=== PATIENT | male | born 1970 | race Caucasian/White ===

== ENCOUNTER 2020-08-20 05:09 | Observation (INO) ==
--- NOTE | 2020-08-12 10:18 | Anesthesiology Consultation ---
Date of Service August 12, 2020 Assessment & Plan (1) Encounter for pre-operative examination: - COVID screening: Per assessment on 08/06: Travel screen- travels throughout [place] (works as a tractor trailer truck driver)- wears proper PPE/follows COVID precaution guidelines. No known COVID-19 positive contacts or current COVID-19 related symptoms. Surgeon arranging preop COVID testing (scheuled 08/13; surgeon's office). Awaiting results. - Check BSG AM DOS - PCP addendum: 06/12/20: "Risk of surgery intermediate." Subsequent stress test ordered by PCP done 06/13/20 with normal echo response (false positive EKG response). Chart Review Chart Review: Acceptable Risk for Surgery and Patient NOT seen in Pre Admission Testing History Surgery Operation Date: 08/20/20 14:15 Proposed Procedures p Left Total Knee Arthroplasty - Oliver Wellington DO Height/Weight Height: 6 ft 1 in Weight: 114.759 kg Allergies Allergy/AdvReac Type Severity Reaction Status Date / Time Penicillins Allergy Unknown Rash Verified 08/06/20 14:52 Medications Home Medications Medication Instructions Recorded Confirmed Last Taken levothyroxine 150 mcg PO QAM 05/13/20 08/06/20 Unknown losartan 100 mg PO QAM 05/13/20 08/06/20 Unknown metformin 1,000 mg PO BID 05/13/20 08/06/20 Unknown atorvastatin 10 mg PO QPM 08/06/20 08/06/20 Unknown metoprolol succinate 12.5 mg PO QAM 08/06/20 08/06/20 Unknown Past Medical History Medical History Diabetes mellitus, type 2 NIDDM Gout HTN (hypertension) Hypothyroidism Obesity Osteoarthritis TMJ click Past Family History Family History Father Diabetes Other No family history of adverse response to anesthesia Past Surgical History Surgical History History of arthroscopy of left knee History of hernia repair as child History of tooth extraction Social History Smoking Status: Former smoker tobacco type: smokeless tobacco Do You Dip or Chew Tobacco: Yes (1 can/3 days) Smoking End Date: 2009 Hx Alcohol Use: Yes Alcohol type: beer alcohol intake frequency: a few times a month Hx Substance Use: No substance use type: does not use Lab Results Anesthesia Preop Results Results Anesthesia Widget: WBC 6.07 K/uL (4.8-10.8) 08/09/20 Hgb 14.8 g/dL (14.0-18.0) 08/09/20 Hct 43.7 % (42-52) 08/09/20 Plt 207 K/uL (130-400) 08/09/20 Na 140 mmol/L (136-145) 08/09/20 K 4.0 mmol/L (3.5-5.1) 08/09/20 Cl 107 mmol/L (98-107) 08/09/20 CO2 27 mmol/L (21-32) 08/09/20 BUN 16 mg/dl (7-18) 08/09/20 Creat 0.75 mg/dl (0.6-1.4) 08/09/20 Glucose Level 85 mg/dl (70-99) 08/09/20 PT 10.8 Seconds (9.0-12.0) 08/09/20 PTT 25.9 Seconds (21.0-31.0) 08/09/20 INR 1.1 (0.9-1.1) 08/09/20 HA1c 6.2 % (4.5-5.6) H 08/09/20 Urine Color Dark Yellow 08/09/20 Urine Appearance Clear (Clear) 08/09/20 Urine pH 5.0 (4.5-7.5) 08/09/20 Urine Specific [place] 1.029 (1.000-1.030) 08/09/20 Urine Protein Negative (Negative) 08/09/20 Urine Glucose (UA) Negative (Negative) 08/09/20 Urine Ketones Trace (Negative) H 08/09/20 Urine Blood Negative (Negative) 08/09/20 Urine Nitrite Negative (Negative) 08/09/20 Urine Bilirubin Negative (Negative) 08/09/20 Urine Urobilinogen Negative (Negative) 08/09/20 Urine Leukocyte Esterase Negative (Negative) 08/09/20 Testing Electrocardiogram Date: 05/22/20 NSR at 71bpm. Rightward axis. Chest X-Ray Date: 05/22/20 Findings: + NAD Stress Test Date: 06/13/20 Type: DSE Abnormal EKG response to dobutamine infusion with normal augmentation on echocardiography suggesting a false positive EKG response. Note definite evidence of inducible ischemia. No significant valvular disease. 89% MPHR. EF 60 to 65%. Grade 1 diastolic dysfunction.
--- NOTE | 2020-08-18 10:59 | History & Physical Report ---
Date of Service August 20, 2020 Assessment & Plan (1) Degenerative joint disease of left knee: I have indicated the patient for left total knee replacement. The risks, benefits and complications of surgery were explained to the patient which include but not limited to infection, acute blood loss, DVT/PE, injury to nerves, vessels, bone, soft tissue, arthrofibrosis, chronic pain, failure of the prosthesis, knee dislocation, leg length discrepancy, need for additional surgery, cardiac and pulmonary events and . The patient wished to proceed with surgery and informed consent was obtained at this time. We will plan for 81mg ASA BID post-operatively for DVT prophylaxis. Upon discharge the patient will be discharged home with home health services. Appropriate clearances by PCP were obtained. History of Present Illness Chief Complaint: Left knee pain/DJD Primary Care Provider: LENCHO Mai The patient is a 50 year old male who presents with complaints of severe left knee pain and DJD. The patient has failed outpatient conservative treatments to this point which included NSAIDs, [place] corticosteroid and VERDUGO injections, home exercise/walking program. The patient's pain and limited function have progressed to the point where they severely hinder their activities of daily living and they no longer tolerate exercise programs. They are requesting to proceed with total knee replacement surgery. Allergies Allergy/AdvReac Type Severity Reaction Status Date / Time Penicillins Allergy Intermediate Rash Verified 08/20/20 05:30 Home Medications Medication Instructions Recorded Confirmed Type levothyroxine 150 mcg PO QAM 05/13/20 08/20/20 History losartan 100 mg PO QAM 05/13/20 08/20/20 History metformin 1,000 mg PO BID 05/13/20 08/20/20 History atorvastatin 10 mg PO QPM 08/06/20 08/20/20 History metoprolol succinate 12.5 mg PO QAM 08/06/20 08/20/20 History Past Med/Surg History Medical History Diabetes mellitus, type 2 NIDDM Gout HTN (hypertension) Hypothyroidism Obesity Osteoarthritis TMJ click Surgical History History of arthroscopy of left knee History of hernia repair as child History of tooth extraction Family History Father Diabetes Other No family history of adverse response to anesthesia Social History Smoking Status: Former smoker Smoking End Date: 2009; Second Hand Exposure: Yes (hx); Do You Dip or Chew Tobacco: Yes (1 can/3 days); Tobacco Cessation Education Requested by Patient: No Hx Alcohol Use: Yes Alcohol type: beer Hx Substance Use: No Preferred Language: Venezuelan Communication Ability: Effective Rural Route Carrier Required: No Beliefs That Will Affect Care: None Current Living Situation: Spouse Other Information That Helps Us Care for You: No Feels Safe at Home: Yes Safety Concerns: Feels Safe At This Time Assistive Devices: Glasses Review of Systems Review of Systems: All systems reviewed & are unremarkable except as noted in HPI & below Constitutional: as per Subjective / HPI Physical Exam Physical Exam: LLE NVSI +EHL/FHL/TA/GS SILT grossly, +2 DP pulse, compartments soft NT, limited painful ROM, 5-105 degrees of flexion, +crepitus. Constitutional: WD/WN, vitals as above Eyes: PERRL, conjunctivae normal, anicteric sclerae ENMT: external ear and nose normal, oropharynx normal Neck: trachea midline, no thyromegaly Respiratory: normal respiratory effort, lungs clear to auscultation Cardiovascular: RRR, no murmur, no edema Gastrointestinal (Abdomen): normal bowel sounds, soft, nontender, no hepatosplenomegaly Musculoskeletal: no cyanosis or clubbing, extremities motor strength 5/5 Skin: no rashes, warm and dry Neurologic: patellar DTR's 2+ bilat, sensation intact Psychiatric: A+Ox3, euthymic affect Lymphatic: no cervical or axillary lymphadenopathy Results & Data Results & Data ([place]) Diagnostic Findings Multiple views of the knee demonstrates severe tricompartmental DJD with complete loss of the medial and PF joint space. +osteophytes, +sclerosis, +subchondral cysts.
[2020-08-20] MEDS ORDERED: GABAPENTIN 900 MG DOSE PO SCH (06:00)
[2020-08-20] MEDS ORDERED: ACETAMINOPHEN 500 MG TAB PO SCH (06:00)
[2020-08-20] MEDS ORDERED: oxyCODONE HCL 10 MG TABCR (OxyCONTIN) PO SCH (06:00)
[2020-08-20] MEDS ORDERED: LR 500ML BOLUS, THEN 15ML/HR IV SCH (06:00)
[2020-08-20] MEDS ORDERED: dexAMETHasone 4 MG TAB PO SCH (06:00)
[2020-08-20] MEDS ORDERED: ROPIVACAINE 0.5% HCL/PF 150 MG, BUPIVACAINE 0.75% MPF 20 ML, EPINEPHrine 30MG/30ML (OR ... INFIL SCH (06:00)
[2020-08-20] MEDS ORDERED: CeleBREX 200 MG CAP PO SCH (06:00)
[2020-08-20] MEDS ORDERED: CLINDAMYCIN 600 MG/54 ML BAG IV SCH (06:00)
[2020-08-20] MEDS ORDERED: METOCLOPRAMIDE HCL 10 MG TABLET PO SCH (06:00)
[2020-08-20] MEDS ORDERED: BUPIVACAINE 0.5 % 5 MG/1 ML PF 10ML VIAL ONE (06:22)
[2020-08-20] MEDS ORDERED: ROPIVACAINE 0.5% 5 MG/ML 30 ML VIAL ONE (06:22)
[2020-08-20] MEDS ORDERED: fentaNYL citrate 100 MCG/2 ML VIAL ONE (06:47)
[2020-08-20] MEDS ORDERED: MIDAZOLAM HCL 1 MG/ML 2ML VIAL ONE (06:47)
[2020-08-20] MEDS ORDERED: PROPOFOL IV EMULSION 10 MG/ML 20 ML VIAL IV ONE (06:47)
[2020-08-20] MEDS ORDERED: HYDROmorphone INJ 2 MG/ML SYR/VIAL IV PRN (06:51)
[2020-08-20] MEDS ORDERED: fentaNYL citrate 100 MCG/2 ML VIAL IV PRN (06:51)
[2020-08-20] MEDS ORDERED: ATROPINE SULFATE 0.1 MG/ML 10ML SYR IV PRN (06:51)
[2020-08-20] MEDS ORDERED: ePHEDrine sulfate 50 MG/ML AMP IV PRN (06:51)
--- NOTE | 2020-08-20 06:54 | History & Physical Bridge Note ---
Date of Service August 20, 2020 History & Physical Bridge Note I have examined the patient, reviewed the History & Physical and in the interval since the performance of the History & Physical I have noted the following changes of clinical significance: no changes noted
[2020-08-20] MEDS ORDERED: TRANEXAMIC ACID / 0.7% NACL 1000MG/100ML BAG IV ONE (06:56)
[2020-08-20] MEDS: TRANEXAMIC ACID / 0.7% NACL 1,000 MG/100 ML BAG IV SCH ×2 (06:59→10:36)
[2020-08-20] MEDS ORDERED: ORTHO JOINT ANESTHETIC ONE (07:00)
[2020-08-20] MEDS ORDERED: TRANEXAMIC ACID / 0.7% NACL 1,000 MG/100 ML BAG IV SCH (07:00)
[2020-08-20] MEDS ORDERED: ONDANSETRON INJ 2 MG/ML 2 ML VIAL ONE (08:11)
--- NOTE | 2020-08-20 08:53 | Post Operative Brief Note ---
Immediate Post Op Note v1 Date of Surgery August 20, 2020 Pre & Post Diagnosis Operation Date: 08/20/20 07:15 Pre-Op Diagnosis: Osteoarthritis, Left Knee Post-Op Diagnosis: Osteoarthritis, Left Knee I identified the patient and participated in the time-out.: Yes Procedure Operation Date: 08/20/20 07:15 Actual Procedures p Left Total Knee Arthroplasty - Oliver Wellington DO Surgeon Oliver Wellington DO Care Management Specialist Edwardo Pina Estimated Blood Loss 55 Findings Consistent with Post-Op Diagnosis Fluids See anesthesia report Specimens Proximal tibia and distal medial femur bone from Anesthesia Type Spinal MAC Complications none Disposition Disposition: Recovery Room Overlapping Procedure I was present for: the critical portions of procedure. I was immediately available: during the entire case. Back up surgeon: was not required during procedure.
--- NOTE | 2020-08-20 08:55 | Operative Report ---
Post Operative Report Pre & Post Diagnosis Operation Date: 08/20/20 07:15 Pre-Op Diagnosis: Osteoarthritis, Left Knee Post-Op Diagnosis: Osteoarthritis, Left Knee I identified the patient and participated in the time-out.: Yes Procedure Operation Date: 08/20/20 07:15 Actual Procedures p Left Total Knee Arthroplasty - Oliver Wellington DO Surgeon Oliver Wellington DO Measurement And Verification Engineer Edwardo Pina Estimated Blood Loss 55 Findings Consistent with Post-Op Diagnosis Fluids My anesthesia report Specimens Proximal tibia and distal femur bone fragment Anesthesia Type Spinal MAC Complications none Disposition Disposition: Recovery Room Indications The patient is a 50-year-old male presents with long history of severe left knee tricompartmental DJD and failed outpatient conservative treatments including NSAIDs, bracing, injections and home walking/exercise program. The patient's symptoms have progressed to the point where it has been difficult to perform normal activities of daily living. I have indicated the patient for a left total knee arthroplasty, the risks and benefits and complications of the procedure include but are not limited to infection bleeding damage to bone, nerves, vessels, surrounding soft tissue, blood clots, loss of function, leg length discrepancy, dislocation, failure of the components, need for additional surgery and . The patient wished to proceed with surgery at this time and informed consent was obtained. Appropriate clearances were obtained. Description of Procedure COMPONENTS USED: Blair persona knee system: Femur size 11 standard, Tibia size 8, Tibial articulating surface 10 PS, Patella 34 mm oval Following induction of spinal anesthesia, a tourniquet was applied to the pr oximal aspect of the thigh and the patient's left leg was prepped and draped in the usual sterile manner. A timeout was performed, patient identified and site anita confirmed. Appropriate pre-operative IV antibiotics were given. The limb was exsanguinated with an Esmarch bandage and tourniquet was inflated to 300 mmHg. A longitudinal midline incision was made over the anterior knee. Subcutaneous tissue was sharply dissected down to fascia. Electrocautery was used for hemostasis. Next a parapatellar arthrotomy was performed. Patella was everted and the knee was flexed. A Lawrence retractor was used to expose the synovium above on the anterior aspect of the femur and removed down to bone. Next, the anterior fat pad was removed to aid in visualization. The medial face of the tibia was cleared of soft tissue first with a Bovie and a oliver elevator. This tissue was retracted posteriorly using a blunt Hohmann. Next, the extra-medullary tibial cutting guide was placed to the anterior aspect of the tibia. The tibia resection level was set taking 2mm from the defective tibial condyle. Resection depth was once again confirmed with maranda wing. The medial and lateral collateral ligament was protected with two Hohmann retractors. The tibia guide was removed and proximal tibial bone fragment removed utilizing straight osteotome, electrocautery and Nuria. Next, the distal femur intramedullary canal was accessed utilizing the step drill. The intramedullary distal femur cutting guide was placed into the canal and pinned into place. The distal femur was cut on the 5 degree setting. Next the cutting guide was removed and the femur was sized. Care was taken to ensure appropriate naphthol soaping machine operator all rotation and 3 degree holes were drilled. A size 11 4-in-1 cutting block was placed on the distal end of the femur and secured into place with two short headed screws. Two bent Hohmann retractors were placed to protect the medial and lateral collateral ligaments. The oscillating saw was used to cut anterior, posterior, anterior chamfer and posterior chamfer. The four and one cutting block was removed and bone fragments excised. Laminar supervisor gas meter repair was placed laterally and the ACL and PCL were removed followed by the medial meniscus and posterior medial osteophytes. Aquamantys was utilized for any posterior medial bleeders and Orthomix injected into the posterior medial capsule. A laminar supervisor gas meter repair was then placed in the medial compartment and the lateral meniscus and posterior osteophytes were removed. Aquamantys was utilized for any posterior lateral bleeders and Orthomix injected into the posterior lateral capsule. Next, drop rebeca and spacer block were placed with the leg in flexion and extension to assess alignment and flexion/extension gaps. Next, the proximal tibia was assessed and two bent Hohmans were placed medial and lateral to aid in visualization. The appropriate tibia size and rotation was selected and a size H tibial plate was pinned into place with appropriate rotation. Preparation of the tibia was completed utilizing the matching tibial drill and broach. I then turned my attention back to the distal femur in a trial femoral component was impacted into place. Appropriate femoral width was assessed and selected. Next the femur PS box cut guide was placed and cut made with the reciprocal saw and the PS box provisional placed. A trial size 10 PS tibia articular tray was placed and varus-valgus balance assessed in 0 degrees of extension and 30, 60 and 90 degrees of flexion. A final tibial articular surface size 10 PS was chosen. Assess was gained to the patella and caliper utilized to measure width. The patella reamer was utilized and remaining bone removed with oscillating saw. A size 34 mm oval patella button was selected and the patella pegs drilled. Trial patella button was placed and tracking was assessed. The knee was found to be well balanced, well aligned with excellent patella tracking. The trials were removed and final components were obtained and assembled. The knee was irrigated copiously with sterile saline solution mixed with bacitracin. Access to the proximal tibia was once again obtained utilizing to the Hohmans and the proximal tibia and distal femur were dried with lap sponges. The final components were cemented into place and all excess cement was removed. A trial tibial articular surface was placed while cemented hardened. Knee stability was once again assessed and the final component inserted. A Betadine soak was performed. After 3 minutes, the knee was once more irrigated with copious sterile saline solution with bacitracin. The knee was injected with the remaining Orthomix which includes a combination of Ropivicaine 0.5% 150mg, Bupivicaine 0.5%/Epinephrine 1:200,000 30ml, Toradol 30mg, Dexamethasone 4mg, Ketamine 10mg, Clonidine 100mcg and NSS 30ml solution. The capsulotomy was closed with #1 Vicryl followed by subcutaneous closure with 2-0 Vicryl suture and a 3-0 V-lock suture. Skin closure was performed using Prineo dressing followed by Telfa, 4 x 4s and william wrap. Tourniquet was deflated at 102 minutes. The patient tolerated the procedure well and was taken to the PACU in stable condition. Due to the complex nature of the procedure, the entire surgery was performed with the operational assistance of Edwardo Pina PA-C. The anesthesiology physician assistant, under direct supervision, was involved in the actual performance of all aspects of the surgical procedure including patient positioning, hemostasis, tissue retraction, instrument management and wound closure. I attest to the content of the Intraoperative Record and any orders documented therein. Any exceptions are noted below.
--- NOTE | 2020-08-20 09:58 | XRay Report ---
XR knee LT 1 or 2V routine HISTORY: 50 years-old Male Surgical Post Op left knee total joint arthroplasty COMPARISON: 03/31/2015 TECHNIQUE: 2 views of the left knee FINDINGS: Total joint arthroplasty and patella resurfacing. Satisfactory alignment without acute fracture or re tained foreign body. Expected postsurgical soft tissue swelling with deep tissue air. IMPRESSION: Left knee total joint arthroplasty with expected postoperative changes. ACT 112: Negative or not required by law. The above report was generated using voice recognition software. It may contain grammatical, syntax o r spelling errors. Electronically signed by: Clay Ellis M.D. 08/20/2020 9:57 AM
[2020-08-20] MEDS ORDERED: NALOXONE HCL 0.4 MG/1 ML VIAL/CARP IV PRN (10:33)
[2020-08-20] MEDS ORDERED: ONDANSETRON INJ 2 MG/ML 2 ML VIAL IV PRN (10:33)
[2020-08-20] MEDS ORDERED: HYDROmorphone INJ 0.5 MG/0.5 ML SYR IV PRN (10:33)
[2020-08-20] MEDS ORDERED: diphenhydrAMINE Capsule 25 MG CAP PO PRN (10:33)
[2020-08-20] MEDS ORDERED: MAGNESIUM HYDROXIDE SUSP 30 ML UDC PO PRN (10:33)
[2020-08-20] MEDS ORDERED: oxyCODONE HCL IR 5 MG TAB (IMMEDIATE RELEASE) PO PRN (10:33)
[2020-08-20] MEDS ORDERED: METOCLOPRAMIDE HCL INJ 5 MG/ML 2 ML VIAL IV PRN (10:33)
[2020-08-20] MEDS ORDERED: bisacodyL 10 MG SUPP PR PRN (10:33)
[2020-08-20] MEDS ORDERED: diphenhydrAMINE 50 MG/ML VIAL IV PRN (10:33)
[2020-08-20] MEDS ORDERED: PHARMACY GLYCEMIC MGMT CONSULT PRN (10:51)
--- NOTE | 2020-08-20 10:53 | Anesthesiology Progress Note ---
Date of Service August 20, 2020 Anesthesia Post Procedure Vital Signs Vital Signs: Temp Pulse Pulse Resp BP Pulse Ox 08/20/20 10:49 36.4 C L 50 L 16 101/65 99 08/20/20 10:20 36.5 C 56 L 18 105/65 98 08/20/20 10:06 36.3 C L 55 L 12 110/67 96 08/20/20 09:55 55 L 12 107/67 95 08/20/20 09:45 56 L 12 110/68 97 08/20/20 09:36 36.3 C L 60 10 L 111/62 98 08/20/20 06:05 36.7 C 55 L 18 124/77 96 08/20/20 05:36 36.8 C 65 18 143/89 H 97 Transfer of Care Handoff Completed per policy Notes Mental Status: alert / awake / arousable and participated in evaluation Patient Amnestic to Procedure: Yes Nausea / Vomiting: adequately controlled Pain: adequately controlled Airway Patency, RR, SpO2: stable & adequate BP & HR: stable & adequate Hydration State: stable & adequate Neuraxial Anesthesia: was administered and sensory block is resolving Anesthetic Complications: no major complications apparent
[2020-08-20] MEDS ORDERED: GLUCAGON FOR INJ 1 MG VIAL IM PRN (11:00)
[2020-08-20] MEDS ORDERED: GLUCOSE 40% GEL 15 GM TUBE PO PRN (11:00)
[2020-08-20] MEDS ORDERED: DEXTROSE 50% 50 ML SYRINGE IV PRN (11:00)
[2020-08-20] MEDS ORDERED: GLUCOSE 10 TABS/TUBE PO PRN (11:00)
[2020-08-20] MEDS ORDERED: CARBOHYDRATES FOR HYPOGLYCEMIA PO PRN (11:00)
--- NOTE | 2020-08-20 11:01 | Pharmacy Report ---
Pharmacy Glycemic Short Note 2 - Date of Service August 20, 2020 - Glycemic Short BSG Results (Last 24 hours): 08/20/20 08/20/20 05:25 09:38 POC Glucose 94 131 H OUTPATIENT ANTIDIABETIC REGIMEN: * Metformin 1,000mg PO BIDM * A1c = 6.2% on 08/09/20 ASSESSMENT: * 50yo T2DM male with excellent outpatient control per A1c. Pt admitted for Left Knee Arthroplasty. * Pt is maintained on oral antidiabetic agents as an outpatient * Oral agents are not recommended for inpatient use d/t drug interactions, changing PO intake, and difficulty titrating for acute hyper/hypoglycemia. ADA recommends re-initiating outpatient oral agents 1-2 days prior to discharge if/when appropriate if they were held on admission. * Will hold oral agents for admission and utilize SQ basal bolus insulin regimen which is the recommended regimen for inpatient glycemic control. * Will initiate weight based insulin dosing for steroid induced hyperglycemia (pt received dexamethasone 8mg PO preop) plus weight based NovoLog to replace metformin while on hold. * Titrate based on BSG trends. * Goal is to maintain BSGs <180 (ideally <150) to prevent post-op infectious complications. PLAN FOR INPATIENT GLYCEMIC CONTROL: * Hold outpatient oral diabetes medications * Basal insulin * N/A * Steroid induced hyperglycemia * NPH 20 units (~0.2 units.kg) Sq x 1 dose * Bolus insulin * NovoLog per scale ACHS or Q6hrs while NPO * Goal Range: Low 110 mg/dL - High 140 mg/dL * Correction Factor: 20 mg/dL/unit * Nutritional / Prandial insulin per carb ratio of 1 unit per 7 grams CHO consumed PLAN FOR DISCHARGE: * A1c is in goal range for patient based on age/co-morbidities. No changes needed to outpatient regimen.
[2020-08-20] MEDS ORDERED: NovoLIN-N (NPH) PER UNIT CHARGE SQ SCH (11:30)
[2020-08-20] MEDS: INSULIN ASPART 100 UNITS/ML 3 ML PEN SC SCH ×3 (13:04→22:22)
[2020-08-20] MEDS: LEVOTHYROXINE SODIUM 150 MCG TABLET PO SCH (13:07)
[2020-08-20] MEDS: METOPROLOL SUCC 25MG EXT REL TAB PO SCH (13:07)
[2020-08-20] MEDS: DOCUSATE SODIUM 100 MG CAP PO SCH ×2 (13:12→21:29)
[2020-08-20] MEDS: LOSARTAN POTASSIUM 50 MG TAB PO SCH (13:14)
[2020-08-20] MEDS: MULTIVITAMIN TAB PO SCH (13:15)
[2020-08-20] MEDS: SODIUM CHLORIDE 0.9% 1000ML 1,000 ML IV SCH ×2 (13:28→23:58)
[2020-08-20] MEDS: CLINDAMYCIN 600 MG in DEXTROSE 5% 50 ML IV SCH ×2 (14:23→21:32)
[2020-08-20] MEDS: KETOROLAC TROMETHAMINE 15 MG/ML VIAL IV SCH ×3 (14:23→23:58)
[2020-08-20] MEDS: ACETAMINOPHEN 500 MG TAB PO SCH ×2 (14:24→21:30)
[2020-08-20] MEDS ORDERED: SENNA 8.6 MG TAB PO SCH (21:00)
[2020-08-20] MEDS ORDERED: ATORVASTATIN 10 MG TAB PO SCH (21:00)
--- NOTE | 2020-08-20 22:00 | Orthopedic Progress Note ---
Date of Service August 20, 2020 Assessment & Plan (1) Degenerative joint disease of left knee: s/p L TKA -clinda x 24 -DVT ppx: SCDs, TEDs, 81mg ASA BID -WBAT LLE -PT/OT -PO XR demonstrates a well aligned well fixed prothesis without fracture/dislocation -am labs -DC planning Admission and Anticipated Discharge Date Admission Date: August 20, 2020 Subjective Post Operative Progress Note Patient seen sitting up in bed, comfortable, denies complaints, pain well controlled, no acute issues. Review of Systems Review of Systems: All systems reviewed & are unremarkable except as noted in HPI & below Constitutional: as per Subjective / HPI Physical Exam Physical Exam: LLE NVSI +EHL/FHL/TA/GS SILT grossly, +2 DP pulse, compartments soft NT, dressing cdi. Constitutional: WD/WN, vitals as above Results & Data ([facility]) Vital Signs (Past 12 Hours) Vital Signs Temp Pulse Pulse Resp BP BP Pulse Ox 08/20/20 21:47 36.4 C L 50 L 16 102/63 94 08/20/20 19:07 36.5 C 56 L 16 104/64 97 08/20/20 15:47 36.3 C L 52 L 16 103/63 99 08/20/20 13:22 36.4 C L 54 L 16 102/59 L 96 08/20/20 12:20 36.3 C L 58 L 16 116/76 98 08/20/20 11:27 36.5 C 51 L 16 103/66 98 08/20/20 10:49 36.4 C L 50 L 16 101/65 99 08/20/20 10:20 36.5 C 56 L 18 105/65 98 08/20/20 10:06 36.3 C L 55 L 12 110/67 96
[2020-08-21] MEDS: ACETAMINOPHEN 500 MG TAB PO SCH ×2 (05:52→13:04)
[2020-08-21] MEDS: LEVOTHYROXINE SODIUM 150 MCG TABLET PO SCH (05:52)
[2020-08-21] MEDS: KETOROLAC TROMETHAMINE 15 MG/ML VIAL IV SCH (05:54)
[2020-08-21 06:50] LABS: Hematocrit (blood only) 38.5 % (42-52); Mean Corpuscular Hemoglobin 28.8 pg (25-34); Mean Corpuscular Hgb Conc 33.8 g/dL (32-36); Mean Corpuscular Volume 85.2 fL (80-100); Mean Platelet Volume 9.5 fL (7.4-10.4); Platelet Count 175 K/uL (130-400); RDW Coefficient of Variation 12.9 % (11.5-14.5); Red Blood Count 4.52 M/uL (4.7-6.1); White Blood Count 12.46 K/uL (4.8-10.8)
[2020-08-21 07:24] LABS: BUN Creatinine Ratio 21.4 (10-20); Calcium 9.1 mg/dl (8.5-10.1); Creatinine Clr Calc Pharmacy 132.4 ml/min; Est GFR (Non-African American) 99.2; Potassium 3.8 mmol/L (3.5-5.1)
--- NOTE | 2020-08-21 08:21 | Orthopedic Progress Note ---
Date of Service August 21, 2020 Assessment & Plan (1) Degenerative joint disease of left knee: s/p L TKA POD#1 -clinda x 24 -DVT ppx: SCDs, TEDs, 81mg ASA BID -WBAT LLE -PT/OT -PO XR demonstrates a well aligned well fixed prothesis without fracture/dislocation -am labs- as above, hgb 13.0 -DC planning - home with Admission and Anticipated Discharge Date Admission Date: August 20, 2020 Subjective Post Operative Progress Note Patient seen sitting up in bed, comfortable, denies complaints, pain well controlled, no acute issues. Denies F/C/N/V/SOB/CP. Review of Systems Review of Systems: All systems reviewed & are unremarkable except as noted in HPI & below Constitutional: as per Subjective / HPI Physical Exam Physical Exam: LLE NVSI +EHL/FHL/TA/GS SILT grossly, +2 DP pulse, compartments soft NT, dressing cdi. Constitutional: WD/WN, vitals as above Results & Data ([facility]) Vital Signs (Past 12 Hours) Vital Signs Temp Pulse Resp BP Pulse Ox 08/21/20 08:03 36.5 C 59 L 16 119/74 100 08/21/20 02:27 36.4 C L 50 L 16 115/70 96 08/20/20 21:47 36.4 C L 50 L 16 102/63 94 Laboratory Results 08/21/20 08/21/20 08/20/20 Range/Units 06:36 06:36 21:05 WBC 12.46 H (4.8-10.8) K/uL RBC 4.52 L (4.7-6.1) M/uL Hgb 13.0 L (14.0-18.0) g/dL Hct 38.5 L (42-52) % MCV 85.2 (80-100) fL MCH 28.8 (25-34) pg MCHC 33.8 (32-36) g/dL RDW Std Deviation 40.0 (36.4-46.3) fL RDW Coeff of Baltazar 12.9 (11.5-14.5) % Plt Count 175 (130-400) K/uL MPV 9.5 (7.4-10.4) fL Sodium 141 (136-145) mmol/L Potassium 3.8 (3.5-5.1) mmol/L Chloride 111 H (98-107) mmol/L Carbon Dioxide 27 (21-32) mmol/L Anion Gap 3.0 (3-11) BUN 19 H (7-18) mg/dl Creatinine 0.87 (0.6-1.4) mg/dl Est Cr Clr Drug Dosing 132.4 ml/min Est GFR ( Amer) 115.0 Est GFR (Non-Af Amer) 99.2 BUN/Creatinine Ratio 21.4 H (10-20) Glucose 113 H (70-99) mg/dl POC Glucose 139 H (70-99) mg/dl Calcium 9.1 (8.5-10.1) mg/dl 08/20/20 08/20/20 08/20/20 Range/Units 17:15 12:10 09:38 WBC (4.8-10.8) K/uL RBC (4.7-6.1) M/uL Hgb (14.0-18.0) g/dL Hct (42-52) % MCV (80-100) fL MCH (25-34) pg MCHC (32-36) g/dL RDW Std Deviation (36.4-46.3) fL RDW Coeff of Baltazar (11.5-14.5) % Plt Count (130-400) K/uL MPV (7.4-10.4) fL Sodium (136-145) mmol/L Potassium (3.5-5.1) mmol/L Chloride (98-107) mmol/L Carbon Dioxide (21-32) mmol/L Anion Gap (3-11) BUN (7-18) mg/dl Creatinine (0.6-1.4) mg/dl Est Cr Clr Drug Dosing ml/min Est GFR ( Amer) Est GFR (Non-Af Amer) BUN/Creatinine Ratio (10-20) Glucose (70-99) mg/dl POC Glucose 148 H 133 H 131 H (70-99) mg/dl Calcium (8.5-10.1) mg/dl
[2020-08-21] MEDS: MULTIVITAMIN TAB PO SCH (08:42)
[2020-08-21] MEDS: METOPROLOL SUCC 25MG EXT REL TAB PO SCH (08:43)
[2020-08-21] MEDS: LOSARTAN POTASSIUM 50 MG TAB PO SCH (08:43)
[2020-08-21] MEDS: DOCUSATE SODIUM 100 MG CAP PO SCH (08:44)
[2020-08-21] MEDS: INSULIN ASPART 100 UNITS/ML 3 ML PEN SC SCH ×2 (08:47→12:35)
--- NOTE | 2020-08-21 08:48 | Pharmacy Report ---
Pharmacy Glycemic Short Note 2 - Date of Service August 21, 2020 - Glycemic Short BSG Results (Last 24 hours): 08/20/20 08/20/20 08/20/20 09:38 12:10 17:15 Glucose POC Glucose 131 H 133 H 148 H 08/20/20 08/21/20 08/21/20 21:05 06:36 08:28 Glucose 113 H POC Glucose 139 H 99 OUTPATIENT ANTIDIABETIC REGIMEN: * Metformin 1,000mg PO BIDM * A1c = 6.2% on 08/09/20 ASSESSMENT: 08/21 * BSGs well controlled over last 24 hrs * 30 units SQ insulin administered over last 24 hrs * Fasting BSG 99-113 this AM w/ 20 units NPH given yesterday - no further steroids have been ordered - will no provide further NPH today * Post-prandial BSGs well controlled yesterday as well using "moderate" stress dosing -will continue the same this AM * Will begin metformin with dinner today as renal fxn adequate and patient tolerating diet. We may be able to lessen/remove prandial insulin in the near future 08/20 * 50yo T2DM male with excellent outpatient control per A1c. Pt admitted for Left Knee Arthroplasty. * Pt is maintained on oral antidiabetic agents as an outpatient * Oral agents are not recommended for inpatient use d/t drug interactions, changing PO intake, and difficulty titrating for acute hyper/hypoglycemia. ADA recommends re-initiating outpatient oral agents 1-2 days prior to discharge if/when appropriate if they were held on admission. * Will hold oral agents for admission and utilize SQ basal bolus insulin regimen which is the recommended regimen for inpatient glycemic control. * Will initiate weight based insulin dosing for steroid induced hyperglycemia (pt received dexamethasone 8mg PO preop) plus weight based NovoLog to replace metformin while on hold. * Titrate based on BSG trends. * Goal is to maintain BSGs <180 (ideally <150) to prevent post-op infectious complications. PLAN FOR INPATIENT GLYCEMIC CONTROL: * Resume metformin 1gm PO BID w/ meals this afternoon * Basal insulin * none * Bolus insulin * NovoLog per scale ACHS or Q6hrs while NPO * Goal Range: Low 110 mg/dL - High 140 mg/dL * Correction Factor: 20 mg/dL/unit * Nutritional / Prandial insulin per carb ratio of 1 unit per 7 grams CHO consumed PLAN FOR DISCHARGE: * A1c is in goal range for patient based on age/co-morbidities. No changes needed to outpatient regimen.
[2020-08-21] MEDS ORDERED: ASPIRIN 81 MG ECTAB PO SCH (09:00)
[2020-08-21] MEDS ORDERED: metFORMIN HCL 500 MG TAB PO SCH (17:00)
[2020-08-21] MEDS ORDERED: CeleBREX 200 MG CAP PO SCH (21:00)
--- NOTE | 2020-08-21 21:53 | Discharge Summary ---
Date of Service August 21, 2020 Admission HPI Per Admitting Provider The patient is a 50 year old male who presents with complaints of severe left knee pain and DJD. The patient has failed outpatient conservative treatments to this point which included NSAIDs, IA corticosteroid and VERDUGO injections, home exercise/walking program. The patient's pain and limited function have progressed to the point where they severely hinder their activities of daily living and they no longer tolerate exercise programs. They are requesting to proceed with total knee replacement surgery. Principal Diagnosis Left total knee replacement Discharge Exam LLE NVSI +EHL/FHL/TA/GS SILT grossly, +2 DP pulse, compartments soft NT, dressing cdi. Constitutional WD/WN, vitals as above Discharge Data Allergies Allergy/AdvReac Type Severity Reaction Status Date / Time banana Allergy Severe Swelling Verified 08/20/20 14:22 of Lip/Tongue/Throat melon Allergy Severe Swelling Verified 08/20/20 14:22 of Lip/Tongue/Throat cantaloupe Allergy Intermediate Swelling Verified 08/20/20 14:23 of Lip/Tongue/Throat Penicillins Allergy Intermediate Rash Verified 08/20/20 05:30 watermelon Allergy Intermediate Swelling Verified 08/20/20 14:23 of Lip/Tongue/Throat Procedures Performed Operation Date: 08/20/20 07:15 Actual Procedures p Left Total Knee Arthroplasty(Left) - Oliver Wellington DO Ordered Studies 08/20/20 05:00 US - OR guided needle placemen Routine Hospital Course (1) Degenerative joint disease of left knee: The patient is a 50 -year-old male who presents with long standing history of severe left knee DJD and failed outpatient conservative treatments. The patient's symptoms have progressed to the point where it has been difficult to perform even normal activities of daily living. I indicated the patient for a left total knee arthroplasty, the risks, benefits and complications of the procedure include but not limited to infection, bleeding, damage to bone, nerves, vessels, surrounding soft tissue, may develop blood clots, loss of function, leg length discrepancy, dislocation, failure of the components, loosening of the components, the need for additional surgery and . The patient wished to proceed with surgery at this time and informed consent was obtained. Hospital Course: On 08/20/20 the patient was taken to the operating room, adequate anesthesia administered and underwent a left total knee arthroplasty. The patient tolerated the procedure well and was taken to the PACU in stable condition. Post-operatively the patient was started on a DVT ppx medication and given appro priate IV antibiotics. Consults were placed to physical therapy, occupational therapy and case management. On POD#1, the patient did well overnight and their pain was well controlled. Labs were drawn and the Hgb was 13.0. The patient progressed well with PT. Dressings were changed at this time and the incision was clean, dry and intact. The patients hospital stay was relatively uneventful and they were deemed stable by the orthopedic team and consultants to be discharged home with HH on 08/21/20. Discharge Instructions: Upon discharge the patient may weight bear as tolerates through their operative extremity. They were instructed to keep the incision clean and dry at all times. The patient may shower but should not submerge the incision, avoid bathing, pools and hot tubs. The patient was given a script for pain medication and should take as instructed. The patient was given a script for DVT ppx 81mg ASA BID and should take as directed. The patient was instructed to not drive or travel for long distances until cleared to do so. If the patient develops any symptoms of fevers, chills, nausea, vomiting, increased redness, swelling, pain or drainage from the surgical site, they should notify the office and/or proceed to the nearest emergency room. The patient should follow up in 10-14 days after surgery for their routine post-operative follow-up appointment and should call the office, to confirm the date and time. s/p L TKA POD#1 -clinda x 24 -DVT ppx: SCDs, TEDs, 81mg ASA BID -WBAT LLE -PT/OT -PO XR demonstrates a well aligned well fixed prothesis without fracture/dislocation -am labs- as above, hgb 13.0 -DC planning - home with Total Time Total Time Spent Total Time Spent (In Minutes): 30 Discharge Plan Discharge Items Patient Disposition: Home - Home Health Services Reason For Visit: Osteoarthritis, Left Knee Discharge Diagnosis: Left total knee replacement Condition on Discharge: Good Activity: Per Instructions section Lifting: Wait until after follow-up appointment Bathing: Keep incision dry Bathing Comment: No bathing, pools or hot tubs. Sexual Activity: Wait until after follow-up appointment Exercise/Sports: Wait until after follow-up appointment Driving/Machine Use: No driving. Weightbearing: Full weightbearing Non-emergency contact: Primary Care Provider and Surgeon Call non-emergency contact if: you have any medication questions, your symptoms worsen, your pain is not controlled, your pain is worsening, your pain is unusual for you, your pain is concerning for you, you have a fever, your temperature is above 101, your wound has increased redness, your wound has increased drainage and your wound pain has increased Follow-up/Referrals: Ita Morse CRNP [Primary Care Provider] - Diet: Carb Consistent or DM2 Addtl Attending Provider Instructions: ACTIVITY RECOMMENDATIONS: SELF CARE INSTRUCTIONS AFTER TOTAL KNEE REPLACEMENT A. You may need to continue a physical therapy program after discharge from the hospital. There are several options available to you. Your doctor will assist you in selecting the best one for you. 1. An out-patient facility 2 to 3 times a week for therapy or home therapy. 2. Continue working on all exercises taught to you in the hospital. Your goals should be to increase bending of your knee to 90 degrees and beyond and to fully straighten your knee. B. You may progress at your own pace from walking with a walker or crutches to a cane; then to no assistive devices. C. Make walking a part of your daily routine. Be up as much as comfortable with rest periods throughout the day. Rest with leg elevation is very important. Use the ice wrap frequently for the first 3-4 weeks. D. There are no restrictions on activities. You may ride in a car, shop, participate in electronic assembler group leader and all social activities. E. Wear the long elastic stockings (CODY hose) 20 hours a day for 2 weeks after surgery. They can be removed several times a day for laundering and for a bath. F. You may shower, no tub baths until cleared by your doctor. SPECIAL CARE INSTRUCTIONS: VERY IMPORTANT TO READ AND REVIEW A. There are a few signs you need to watch for after you are home. Call [facility] if you notice any of the followin. Increased severe knee pain. Some pain is expected especially when you exercise. 2. Increased swelling in your leg or knee; pain or swelling of the calf muscle in either lower leg. 3. Any fluid drainage from the incision. 4. Shortness of breath or chest pain. B. Please call [facility] at if you have any concerns or questions about your operation or recovery. The doctor or his nurse will return your call promptly. C. You must take antibiotics before dental work, bladder, bowel or other surgery. Your doctor will provide you with a permanent care to carry describing this precaution. IMPORTANT: * REMEMBER TO TAKE ASPIRIN, 81 MG, TWICE DAILY FOR 4 WEEKS UNLESS OTHERWISE DIRECTED. THIS IS YOUR BLOOD THINNER. * HIGH RISK PATIENTS MAY BE PRESCRIBED A STRONGER BLOOD THINNER. THIS WILL BE PROVIDED AT DISCHARGE. * CALL IF INCREASED PAIN, REDNESS, DRAINAGE OR FEVER GREATER THAT 101. * WEAR CODY HOSE 20 HOURS PER DAY FOR 2 WEEKS. *DERMABOND Prineo- This is a mesh tape dressing that is covered with glue. It should remain in place until the incision is properly healed, usually 10-14 days. This dressing is designed to naturally slough off. You may trim the excess mesh tape as it peels off. Incision may be briefly wet in a shower. Dry immediately by blotting with a clean, dry towel. Do not bath or swim until instructed by your doctor. Do not scratch, rub, or pick at the dressing. Do not apply any topical ointments or lotions until dressing is completely removed and/or instructed by your doctor. There may be a small piece of suture material at one end of your incision. Do not pull or trim this. If it is bothersome or catching on clothing, you may cover it with a band-aid. If an island dressing is covering your incision you may remove and leave uncovered if dry. Care taken to keep glue mesh intact when removing either dressing. FOLLOW UP VISIT: If appointment is not already scheduled: Please call [facility] to make a follow-up appointment for 2 weeks after your surgery at . Pending Studies at Discharge: No Stand-Alone Forms: [employer], Opioid Pain Management, Smoking Cessation Medications and DC Order Prescriptions: New acetaminophen 500 mg Tablet 1,000 mg PO Q8 PRN (Reason: fever or pain) Qty: 90 RF: 0 aspirin 81 mg Tablet,Delayed Release (Dr/Ec) 81 mg PO BID Qty: 56 RF: 0 celecoxib [Celebrex] 200 mg Capsule 200 mg PO BID PRN (Reason: pain/inflammation) Qty: 30 RF: 0 oxycodone 5 mg Tablet 5 mg PO Q6H PRN (Reason: pain) Qty: 30 RF: 0 sennosides [Senokot] 8.6 mg Tablet 17.2 mg PO HS PRN (Reason: constipation) Qty: 30 RF: 0 Continued metformin 500 mg Tablet 1,000 mg PO BID RF: 0 levothyroxine 150 mcg Tablet 150 mcg PO QAM RF: 0 losartan 100 mg Tablet 100 mg PO QAM RF: 0 atorvastatin 10 mg Tablet 10 mg PO QPM RF: 0 metoprolol succinate 25 mg Tablet Extended Release 24 Hr 12.5 mg PO QAM RF: 0 Discharge Orders: Discharge Order (Routine); Ordered 08/21/20 Ordered By: Edwardo Clemente/Other Patient Handouts: Preventing Deep Vein Thrombosis Admission Data Admit Date/Time: 08/20/20 09:41 Attending Provider: Oliver Wellington Admit Provider: Oliver Wellington Primary Care Provider: Ita Morse Other Providers: [facility],Home Health Other Interventions: Discharge Summary Assessment (RN) Last Done: 08/21/20 10:40
== END 2020-08-21 14:19 | disposition home health service (06) ==
LOC: 3E 05:09 → ASU 05:09